=== PATIENT | female | born 1990 | race Caucasian/White ===

== ENCOUNTER 2018-07-07 02:10 | Emergency (ER) | payer SELFPAY ==
[~2018-07-07] VITALS: Ht 162.6 cm; Wt 99.8 kg
[2018-07-07 02:17] VITALS: BP_SYST 132
--- NOTE | 2018-07-07 02:24 | NUR ---
Patient to ER bed 3 to gown for evaluation. Side rails up. Report given to JAROD YOO.
--- NOTE | 2018-07-07 02:30 | NUR ---
Pt came into ED C/O R Hip pain for 1 month. Pt also states that she is 35 weeks into her , therefore, she does not want any X ray related studies done. However, she just wants to see if the ED Doctor can to a visual / tactile examine to determine if she is ok? No other complaints and or injuries observed or noted. Pt resting on gurney with rails up
--- NOTE | 2018-07-07 03:27 | NUR ---
Dr. Delcid at bedside for pt eval
[2018-07-07] MEDS: ACETAMINOPHEN 500 MG TABLET PO ONE (03:41)
[2018-07-07 03:45] VITALS: BP_SYST 126
--- NOTE | 2018-07-07 03:45 | NUR ---
Patient given written and verbal discharge instructions and verbalizes understanding. ER MD discussed with patient the results and treatment provided. Patient in stable condition. ID arm band removed. Rx of Amoxicillin and Tylenol given. Patient educated on pain management and to follow up with PMD. Pain Scale 0/10. Opportunity for questions provided and answered. Medication side effect fact sheet provided.
== END 2018-07-07 03:45 | disposition home or self-care (01) ==
LOC: SED 02:10
DX: H66.92 Otitis media, unspecified, left ear (principal); M25.551 Pain in right hip; W19.XXXA Unspecified fall, initial encounter; Y93.89 Activity, other specified; Y92.89 Other specified places as the place of occurrence of the external cause; Y99.8 Other external cause status
CPT/HCPCS: 99283